=== PATIENT | male | born 1985 | race American Indian/Alaskan Native ===

== ENCOUNTER 2020-06-27 22:02 | Emergency (ER) | payer MEDICAID ==
--- NOTE | 2020-06-28 00:43 | ED Elopement Review ---
ED Pt Elopement review - Results review Lab results: Patient eloped prior to my evaluation. I did not evaluate this patient.
[2020-06-28 00:56] LABS: Basophils % (Auto) 0.3 % (0.0-1.8); Eosinophils # (Auto) 0.3 K/mm3 (0.0-0.4); Eosinophils % (Auto) 2.7 % (0.0-4.3); Hematocrit 41.8 % (35.5-45.6); Hemoglobin 14.3 gm/dl (11.8-15.2); Lymphocytes # (Auto) 2.5 K/mm3 (1.2-5.4); Lymphocytes % (Auto) 25.7 % (13.4-35.0); Mean Corpuscular HGB Conc 34 % (32-34); Mean Corpuscular Volume 95 fl (84-94); Monocytes # (Auto) 0.6 K/mm3 (0.0-0.8); Monocytes % (Auto) 5.8 % (0.0-7.3); Platelet Count 231 K/mm3 (140-440); Red Blood Count 4.41 M/mm3 (3.65-5.03); Red Cell Distribution Width 13.6 % (13.2-15.2)
[2020-06-28 01:01] VITALS: BP 124/70
[2020-06-28 01:08] LABS: Blood Urea Nitrogen 12 mg/dL (9-20); Calcium 9.9 mg/dL (8.4-10.2); Hemolysis Index 11
[2020-06-28 01:16] LABS: BUN/Creatinine Ratio 17
== END 2020-06-28 00:45 | disposition left against medical advice (07) ==
LOC: ED 22:02
DX: R41.82 Altered mental status, unspecified (principal); Z53.21 Procedure and treatment not carried out due to patient leaving prior to being seen by health care provider
CPT/HCPCS: 36415; 80048; 80320; 85025; G0480

== ENCOUNTER 2020-08-14 15:53 | Emergency (ER) | payer MEDICAID ==
[2020-08-14 17:04] VITALS: BP 137/64
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
--- NOTE | 2020-08-14 17:54 | XRay Report ---
XR foot 3+V LT INDICATION / CLINICAL INFORMATION: foot pain. COMPARISON: None available. FINDINGS: There is a healing base of the second proximal metatarsal which extends into the second TMT joint. No acute fracture identified. The tarsometatarsal joints are normal alignment. Joint spaces are preserv ed. No destructive osseous lesion or suspicious periosteal reaction. Impression: 1. Incompletely healed second proximal metatarsal fracture which extends into the TMT joint. No acute fracture. Signer Name: Kaveh John MD Signed: 08/14/2020 5:49 PM Workstation Name: [id number]
== END 2020-08-14 18:37 | disposition home or self-care (01) ==
LOC: ED 15:53
DX: S96.912A Strain of unspecified muscle and tendon at ankle and foot level, left foot, initial encounter (principal); F25.0 Schizoaffective disorder, bipolar type; X58.XXXA Exposure to other specified factors, initial encounter; Y93.89 Activity, other specified; Y92.89 Other specified places as the place of occurrence of the external cause; Y99.8 Other external cause status